=== PATIENT | female | born 1975 | race Caucasian/White ===

== ENCOUNTER 2020-09-18 22:35 | Emergency (ER) | payer OTHER ==
[~2020-09-18] VITALS: Ht 167.6 cm; Wt 112.0 kg
--- NOTE | 2020-09-18 23:06 | NUR ---
PT BIB [facility], PT PRESENTS WITH SPASMS AND NARESH JERKY UNCONTROLABLE MOMENT. PT AT BEDSIDE. PT HAVING TROUBLE GETTING WORDS OUT, SO WOULD ANSWER QUESTIONS. PT HAD THESE MOMENTS SINCE YESTERDAY, HAD GONE TO [place] AND WAS SENT HOME. PT IN GOWN, PLACED ON CONTINUOUS MONITORING AND ON GURNEY.
[2020-09-18] MEDS ORDERED: LORazepam 2 MG/ML, 1ML ONE (23:13)
--- NOTE | 2020-09-18 23:15 | NUR ---
ERP AT BEDSIDE
[2020-09-18] MEDS ORDERED: LORazepam 2 MG/ML, 1ML IVPush ONE (23:30)
[2020-09-18] MEDS ORDERED: BENZTROPINE 1 MG/ML, 2 ML IM ONE (23:30)
[2020-09-18 23:31] LABS: BASOPHILS % (AUTO) 1 % (0-1); EOSINOPHILS % (AUTO) 2 % (1-7); LYMPHOCYTES % (AUTO) 27 % (22-44); MEAN CORPUSCULAR HEMOGLOBIN 29.3 pg (27.0-34.8); MEAN CORPUSCULAR HGB CONC 33.6 g/dL (32.4-35.8); MEAN PLATELET VOLUME 7.9 fL (7.4-10.4); MONOCYTES % (AUTO) 9 % (2-9); NEUTROPHILS % (AUTO) 61 % (42-75); PLATELET COUNT 340 x10^3/uL (130-400); RED CELL DISTRIBUTION WIDTH 13.7 % (9.6-15.2)
[2020-09-18 23:43] LABS: ALANINE AMINOTRANSFERASE 16 U/L (12-78); ANION GAP 12 mmol/L (5-15); CALCIUM 8.4 mg/dL (8.5-10.1); CHLORIDE 110 mmol/L (98-107)
[2020-09-18 23:46] LABS: ALKALINE PHOSPHATASE 70 U/L (45-117); BILIRUBIN,TOTAL 0.3 mg/dL (0.2-1.0); CREATININE 1.02 mg/dL (0.55-1.02); SALICYLATE LEVEL < 1.7 mg/dL (2.8-20.0)
--- NOTE | 2020-09-18 23:53 | NUR ---
PT LEFT AND RETURNED FROM CT
--- NOTE | 2020-09-19 | NUR ---
PT RESTING ON GURNEY, PT ABLE TO TALK AND STATES MEDICATIONS ARE HELPING. DENIES NEEDS AT THIS TIME.
--- NOTE | 2020-09-19 01:34 | NUR ---
PT RESTING ON GURNEY, DENIES NEEDS AT THIS TIME.
[2020-09-19 02:53] VITALS: BP 111/69
--- NOTE | 2020-09-19 02:59 | NUR ---
Discharge instructions given. All questions and concnerns addressed. Patient wheeled out in wheelchair. Belongings with patient.
== END 2020-09-19 03:20 | disposition home or self-care (01) ==
LOC: ED 22:40
DX: R56.9 Unspecified convulsions (principal); F41.1 Generalized anxiety disorder; M62.838 Other muscle spasm; R00.0 Tachycardia, unspecified
CPT/HCPCS: 36415; 70450; 80053; 80299; 80320; 85025; 93005; 96372; 96374; 99285; J0515; J2060; 80329; G0480